=== PATIENT | female | born 1985 ===

== ENCOUNTER → 2024-11-17 09:30 | Outpatient (BNV) | payer BC, SELFPAY | PROVIDERS: Visit Provider Internal Medicine | DX: R00.0 Tachycardia, unspecified (principal) | CPT/HCPCS: 93248 ==

== ENCOUNTER → 2024-11-17 11:00 | Outpatient (REF) | payer BC, SELFPAY ==
--- NOTE | 2024-11-17 | HM_ITS ---
* Total monitoring time 2 weeks. * Underlying rhythm is sinus with an average rate of 85/Min. * Rare supraventricular ectopy. * Rare ventricular ectopy. * No significant pauses or high-grade AV blocks. * Patient markers used with and without arrhythmias/ectopy. * Dizziness, vision loss, palpitations, skipped beats, woozy, presyncope, nausea, tiredness, fatigue in patient diary associated with sinus rhythm and mild sinus tachycardia. MTDD
--- OUTSIDE RECORDS SUMMARY | 2024-11-24 19:41 | XMS_ITS | Data Portability ---
Author Organization [facility], , [facility] Address [address] [place] [address] Assessment No assessment recorded. Plan of Treatment Reminders Order Date Submit Date Provider Last Modified By Organization Details Last Modified Time Details Appointments None record ed. Lab None record ed. Referral None record ed. Procedures None record ed. Surgeries None record ed. Imaging None record ed. Medication Orders None record ed. Patient TargetsNo targets recorded. Patient Instructions Encounter Date Encounter Id Patient Instructions Last Modified By Organization Details Last Modified Time 05/16/2016 [id number] Glasses Rx was given. RTC for DFE. Not available 05/16/2016 10:23:30 05/29/2016 [id number] DFE today WNL OD and OS Not available 05/29/2016 15:10:48 Reason for Referral None Reported. Results Created Date Observation Date Name Description Value Unit Range Abnormal Flag Note LastModifiedBy Organization Detail LastModifiedTime 01/19/20 21 01/21/2021 CK (crea candice kinas e), total , serum CPK 70.0 U/L 21.0-2 15.0 LIPG= Speci men Marke dly Lipem ic. Chem Resul ts may be effec gabe. Not Available [facility] [address] [place], [address], 01/21/2021 13:02:30 01/19/2001/21/2021 TSH, serum or plasm a TSH 3.08 uIU/m L 0.50-6 .00 LIPM= Speci men Moder ately Lipem ic. Chem Resul ts may be effec gabe. The Ameri can Colle ge of Endoc rinol ogy and Ameri can Thyro id Assoc iatio n recom mend goal TSH value s betwe en 0.4-4 .0 mIU/m L. Not Available [address], [place], [address], 01/21/2021 13:46:10 01/19/20 21 01/22/2021 lyme disea se igg+i gm, serum , refle x weste rn blot lyme Ab screen <0.90 index normal Index Inter preta tion ----- ----- ----- ---- < 0.90 Negat hyacinth 0.90- 1.09 Equiv ocal > 1.09 Posit hyacinth As recom rodney d by the Food and Drug Admin istra tion (FDA) , all sampl es with posit hyacinth or equiv ocal resul ts in a Borre sheldon burgd orfer i antib eh scree n will be teste d using a blot metho d. Posit hyacinth or equiv ocal scree cesar test resul ts shoul d not be inter prete d as truly posit hyacinth until verif ied as such using a suppl ement al assay (e.g. , B. burgd orfer i blot) . The scree cesar test and/o r blot for B. burgd orfer i antib odies may be false ly negat hyacinth in early stage s of Lyme disea se, inclu ding the perio d when eryth juan carlos migra ns is appar ent. 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 Meagan ng Antib eh: Negat hyacinth: < or =0.30 nmol/ L Equiv ocal: 0.31- 0.49 nmol/ L Posit hyacinth: > or =0.50 nmol/ L Not Available [facility] [address], [address], 01/23/2021 00:11:52 01/19/20 21 01/22/2021 cerul oplas min, serum ceruloplasmi n 37 mg/dL 18-53 normal Not Available [facility] [address], [place], [address], 01/23/2021 00:11:52 01/19/20 21 01/23/2021 vitam in B12, serum vitamin B12 343 pg/mL 230-10 50 Not Available [address], [address], 01/23/2021 14:40:04 01/19/20 21 01/24/2021 RPR (rapi d plasm a reagi n), serum RPR NON-RE ACTIVE nonrea ctive Not Available [address], [address], 01/24/2021 12:52:27 Result Notes None recorded. Procedures Surgical History Date Name Laterality Status Provider Name and Address Organization Details Recorded Time 05/16/2016 Refraction completed Elaine Mathew MA [facility] 05/16/2016 09:53:30 Imaging Results None recorded. Procedure Notes None recorded. Medical Equipment None Reported. Medications Name Sig Start Date Stop Date Status Note LastModified by Organization Details LastModified Time Proventil HFA 90 mcg/actuati on aerosol inhaler UNHALE 2 PUFFS EVERY 4 HOURS NEEDED WHEEZING AND PRIOR TO EXERCISE active Not Available Not Available No t Available Synthroid 112 mcg tablet TAKE 1 TABLET BY MOUTH EVERY DAY active Not Available Not Available No t Available bupropion HCl XL 300 mg 24 hr tablet, extended release TAKE 1 TABLET BY MOUTH ONCE A DAY active Not Available Not Available No t Available bupropion HCl XL 150 mg 24 hr tablet, extended release TAKE 1 TABLET BY MOUTH ONCE A DAY FOR 3 DAYS THEN INCREASE DOSE TO 300MG active Not Available Not Available No t Available Symbicort 160 mcg-4.5 mcg/actuati on HFA aerosol inhaler INHALE 2 PUFFS BY MOUTH TWICE A DAY active Not Available Not Available No t Available QNASL 80 mcg/actuati on nasal aerosol spray USE 2 SPRAYS IN ACH NOSTRIL EVERY DAY active Not Available Not Available No t Available Vitals None Recorded Social History None recorded. Functional Status None recorded. Mental Status None recorded. Family History Nothing Reported. Medical History No medical history recorded. Gynecological HistoryNo gynecological history recorded. Obstetrics History GPAL:G 0 P 0 0 0 0 Past Encounters Encounter ID Performer Location Encounter Start Date Encounter Closed Date Diagnosis/Indication Diagnosis SNOMED-CT Code Diagnosis ICD10 Code Diagnosis Note [id number] Yaa Julio, [facility] [address] [address] 05/16/2016 09:28:48 05/16/2016 10:30:06 Myopia 50591996 H52.13 biofinity and daily lenses Ophthalmic examination and evaluation 45715093 Z01.00 [id number] Yaa Julio, [facility] [address] [address] 05/29/2016 14:38:09 05/29/2016 15:13:54 Myopia 19721923 H52.13 biofinity and daily lenses Health Concerns Section Related Observation LastModified by Organization Detai ls LastModified Time None Recorded Concern Status LastModified by Organization Details LastModified Time None Recorded Advance Directives Directive None Recorded Payers Encounter Date Sequence Insurance Name Policy Number Policy Daly Covered Member ID Daly Member ID Guarantor Name 05/16/2016 1 [facility] - [employer]ENT [employer] PLAN [facility](P ) Giana Hinson [id number] Giana Hinson 05/29/2016 1 [facility] [employer] - STUDENT HEALTH [facility](P PO) Giana Hinson [id number] Giana Hinson Notes Date Note Type Note Provider Name and Address Organization Details Recorded Time 05/16/2016 text/html Comprehensive Ey e ExamReported bypatient.Quality:1 year exam; no blurred vision Context:currently wears glasses; currently wears Soft contact lenses Modifying factors:wears glasses for distance and near Associated Symptoms:no redness; no itching; no floaters; no dryness Yaa Julio, OD [address] [place] [address], [phone], [facility] 05/16/2016 10:25:41 05/29/2016 text/html same Yaa Lorenzana Sumanth, OD [address] [place] [address], [phone], [facility] 05/29/2016 15:11:17 OBGyn Episode No OBEpisode recorded.
== END ==
LOC: HO.CARD 11:00
PROVIDERS: Visit Provider Nurse Practitioner
DX: R55 Syncope and collapse (principal)
CPT/HCPCS: 93246